=== PATIENT | female | born 1970 | race Caucasian/White ===

== ENCOUNTER 2020-06-25 13:13 | Emergency (ER) | payer MEDICAID ==
[~2020-06-25] VITALS: Ht 165.1 cm; Wt 75.0 kg
[2020-06-25 13:25] VITALS: BP 119/65
== END 2020-06-25 16:06 | disposition home or self-care (01) ==
LOC: ER 13:14
DX: M77.11 Lateral epicondylitis, right elbow (principal); M25.511 Pain in right shoulder; Z88.8 Allergy status to other drugs, medicaments and biological substances
CPT/HCPCS: 73030; 99283